=== PATIENT | male | born 1940 | race Caucasian/White ===

== ENCOUNTER 2019-11-07 17:10 | Emergency (ER) | payer MEDICARE ==
[2019-11-07] MEDS ORDERED: DIPH,PERTUS(ACELL)TETVAC-LF 0.5 ML VIAL IM ONE (18:11)
--- NOTE | 2019-11-07 18:12 | ED ---
General Adult HPI - General Chief complaint: Fall Stated complaint: Fall Time Seen by Provider: 11/07/19 17:55 Source: patient Mode of arrival: wheelchair Limitations: no limitations - History of Present Illness Initial comments: Dictation was produced using [employer] dictation software. please excuse any grammatical, word or spelling errors. This patient was cared for during a federal and state declared state of emergency secondary to Covid 19 Chief Complaint: 79-year-old male presents after fall. History of Present Illness: 9-year-old male is past medical history dyslipidemia and hypertension. He is walking down the stairs when he got to the third step from the bottom he lost his footing and landed on his left side. Patient states he has had and he has elbow pain. Patient states pain is worse with extension and flexion of the elbow. Patient denies any loss of consciousness he doesn't take any anticoagulation medications. The ROS documented in this emergency department record has been reviewed and confirmed by me. Those systems with pertinent positive or negative responses have been documented in the HPI. All other systems are other negative and/or noncontributory. PHYSICAL EXAM: General Impression: Alert and oriented x3, not in acute distress HEENT: 3 cm laceration to the left parietal scalp, extra-ocular movements intact, pupils equal and reactive to light bilaterally, mucous membranes moist. Cardiovascular: Heart regular rate and rhythm Chest: Able to complete full sentences, no retractions, no tachypnea Abdomen: abdomen soft, non-tender, non-distended, no organomegaly Musculoskeletal: Pulses present and equal in all extremities, no peripheral edema, tenderness with flexion and extension of the left elbow. Motor: no focal deficits noted Neurological: CN II-XII grossly intact, no focal motor or sensory deficits noted Skin: Intact with no visualized rashes Psych: Normal affect and mood ED course: 79-year-old male presents after fall from 3 steps. Vital signs upon arrival are within acceptable limits.Computed tomography scan of the head and neck shows no acute processes. X-ray of the pelvis and chest x-ray shows no acute processes. Elbow x-ray shows radial head fracture with elbow joint effusion. Patient be placed in the left posterior mold splint. He is placed in a left upper extremity sling. Patient be discharged. Given outpatient referral to orthopedic surgery. - Related Data Home Medications Medication Instructions Recorded Confirmed Aspirin EC [Ecotrin Low Dose] 81 mg PO DAILY 11/07/19 11/07/19 Furosemide [Lasix] 40 mg PO DAILY 11/07/19 11/07/19 Levothyroxine Sodium 100 mcg PO DAILY 11/07/19 11/07/19 Losartan [Cozaar] 25 mg PO DAILY 11/07/19 11/07/19 Lovastatin [Mevacor] 40 mg PO HS 11/07/19 11/07/19 Omeprazole 40 mg PO DAILY 11/07/19 11/07/19 Potassium Chloride ER [K-Dur 10] 10 meq PO DAILY 11/07/19 11/07/19 Ubidecarenone [Co Q-10] 100 mg PO HS 11/07/19 11/07/19 amLODIPine [Norvasc] 10 mg PO DAILY 11/07/19 11/07/19 Previous Rx's Medication Instructions Recorded HYDROcodone/APAP 5-325MG [[place] 1 tab PO Q6HR PRN 3 Days #12 tab 11/07/19 5-325] Allergies Allergy/AdvReac Type Severity Reaction Status Date / Time No Known Allergies Allergy Verified 11/07/19 20:01 Review of Systems ROS Statement: Those systems with pertinent positive or pertinent negative responses have been documented in the HPI. ROS Other: All systems not noted in ROS Statement are negative. Past Medical History Past Medical History: Hyperlipidemia, Hypertension History of Any Multi-Drug Resistant Organisms: None Reported Past Psychological History: No Psychological Hx Reported Smoking Status: Never smoker Past Alcohol Use History: None Reported Past Drug Use History: None Reported General Exam Limitations: no limitations Course Vital Signs 11/07/19 17:15 Temperature 97.6 F Pulse Rate 58 L Respiratory 16 Rate Blood Pressure 137/70 O2 Sat by Pulse 94 L Oximetry Procedures - Laceration Laceration #1 Consent Obtained: verbal consent Indication: laceration Site: scalp Description: linear (3 cm, L parietal scalp) Depth: simple, single layer Type of Sutures: other (staple) Size of Sutures: other (staple) Technique: other (staple) Patient Tolerated Procedure: well Disposition Clinical Impression: Elbow fracture Disposition: HOME SELF-CARE Condition: Good Instructions (If sedation given, give patient instructions): Fall Prevention for Older Adults (ED) Prescriptions: HYDROcodone/APAP 5-325MG [[place] 5-325] 1 tab PO Q6HR PRN 3 Days #12 tab PRN Reason: Severe Pain Is patient prescribed a controlled substance at d/c from ED?: No Referrals: Angel Elizabeth DO [Doctor of Osteopathic Medicine] - 1-2 days Time of Disposition: 21:17
--- NOTE | 2019-11-07 19:02 | CT ---
EXAMINATION TYPE: CT brain dionneine wo con DATE OF EXAM: 11/07/2019 COMPARISON: None HISTORY: Fall. CT DLP: 1828 mGycm Automated exposure control for dose reduction was used. There is cerebral cortical atrophy. There is no mass effect nor midline shift. There is no sign of in tracranial hemorrhage. Skull base is intact. There is normal aeration of the mastoid sinuses. The cervical vertebra have normal alignment. There is mild spurring of the endplates. Posterior eleme nts are intact and there is no compression fracture. There is multilevel cervical disc space narrowin g. There is large hypertrophic anterior osteophyte at C5-6. IMPRESSION: Spondylotic changes in the cervical spine. No fracture. Cerebral atrophy. No acute intracranial abnormality.
[2019-11-07] MEDS ORDERED: oxyCODONE-APAP 7.5-325MG 1 EACH TAB PO STA (19:31)
[2019-11-07] MEDS ORDERED: KETOROLAC 15 MG/ML 1 ML VIAL IM STA (19:55)
--- NOTE | 2019-11-07 20:30 | XR ---
EXAMINATION TYPE: XR elbow complete LT DATE OF EXAM: 11/07/2019 COMPARISON: NONE HISTORY: Pain TECHNIQUE: 4 views FINDINGS: There is deformity of the femoral head consistent with an acute impacted fracture. There is small elbow joint effusion. There is no dislocation. IMPRESSION: Slightly impacted radial head fracture with elbow joint effusion. Impaction on the latera l aspect of the head.
--- NOTE | 2019-11-07 20:31 | XR ---
EXAMINATION TYPE: XR pelvis AP view DATE OF EXAM: 11/07/2019 COMPARISON: NONE HISTORY: Pain TECHNIQUE: Single view FINDINGS: The pelvic ring is intact. Proximal femurs and hip joints are intact. Sacroiliac joints tu ear normal. IMPRESSION: Negative exam. No fracture.
--- NOTE | 2019-11-07 20:47 | XR ---
EXAMINATION TYPE: XR abdomen acute w cxr DATE OF EXAM: 11/07/2019 COMPARISON: NONE HISTORY: Abdominal pain TECHNIQUE: 4 views FINDINGS: Bowel gas pattern is normal. There is no sign of intestinal obstruction or pneumoperitoneum . Fecal pattern is normal. The lungs are clear of consolidation. There is no heart failure. There are no hilar masses. Costophrenic angles are clear. There are no pathologic calcifications over the kidn eys. IMPRESSION: Nonacute abdomen. No active cardiopulmonary disease.
[2019-11-07] MEDS ORDERED: ACET/COD 300 MG/30 MG STARTER PACK 6 TAB BTL PO STA (21:18)
[2019-11-07 21:36] VITALS: BP 129/72; PULSE 82; RESP 17; TEMP 98.2
== END 2019-11-07 21:36 | disposition home or self-care (01) ==
LOC: EC 17:10
DX: S52.122A Displaced fracture of head of left radius, initial encounter for closed fracture (principal); S01.01XA Laceration without foreign body of scalp, initial encounter; I10 Essential (primary) hypertension; E78.5 Hyperlipidemia, unspecified; Z79.82 Long term (current) use of aspirin; Z79.890 Hormone replacement therapy; Z79.899 Other long term (current) drug therapy; W10.9XXA Fall (on) (from) unspecified stairs and steps, initial encounter; Y93.01 Activity, walking, marching and hiking
CPT/HCPCS: 74022; 72170; 73080; 72125; 70450; 90715; 99284; 90471; 96372; 12002; L0120; J1885